=== PATIENT | male | born 1950 | race Caucasian/White ===

== ENCOUNTER 2019-05-10 11:12 | Emergency (ER) | payer MEDICARE ==
[~2019-05-10] VITALS: Ht 182.9 cm; Wt 101.4 kg
[2019-05-10 11:25] VITALS: BP 141/77
[2019-05-10] MEDS ORDERED: CARBAMIDE PEROXIDE EAR DROPS 6.5%, 15ML LEFT EAR ONE (12:00)
== END 2019-05-10 13:11 | disposition home or self-care (01) ==
LOC: ED 13:02
DX: H60.501 Unspecified acute noninfective otitis externa, right ear (principal); H61.22 Impacted cerumen, left ear
CPT/HCPCS: 69209; 99283